=== PATIENT | male | born 1955 | race Caucasian/White ===

== ENCOUNTER → 2016-12-20 | Outpatient (CLI) | payer BC ==
[~2016-12-20] MED LIST: OPTIRAY 320 IV PRN
--- NOTE | 2016-12-20 07:30 | DIAGNOSTIC IMAGING REPORT ---
CT OF THE CHEST WITH IV CONTRAST CLINICAL HISTORY: Lung carcinoma COMPARISON STUDY: January 17, 2016 TECHNIQUE: Following the IV administration of 92 mL of Optiray-320, CT of the thorax was performed from the thoracic inlet to the lung bases. Images are reviewed in the axial, sagittal, and coronal planes. IV contrast was administered without complication. CT DOSE: 652.00 mGy.cm FINDINGS: Thyroid: Imaged portions of the thyroid gland are normal in appearance. Thoracic aorta: The thoracic aorta is normal in course and caliber, noting standard 3-vessel arch anatomy. No aneurysm or dissection is seen. Pulmonary vasculature: The pulmonary trunk is normal in caliber. There are no central filling defects identified to suggest pulmonary embolus. Note that this examination was not protocoled for the evaluation of pulmonary emboli. HEART: There are minor coronary artery calcifications. Lungs and pleural spaces: There is a trace right pleural effusion. There are postsurgical changes of a right lower lobectomy. There is no focal pulmonary consolidation. There is stable nodular atelectasis within the lingula. There is mild emphysema. Mediastinum: Mediastinal lymph nodes remain the upper limits of normal in size. Myra: There is no pathologic hilar adenopathy. Axilla: There is no pathologic axillary lymphadenopathy. Upper abdomen: There is hepatic steatosis. Skeletal structures: There is ankylosis of the dorsal spine. IMPRESSION: 1. Postoperative findings consistent with a right lower lobectomy. 2. Hepatic steatosis. 3. No evidence of recurrent malignancy within the chest Electronically signed by: Ian Lwory M.D. 12/20/2016 7:29 AM Dictated Date/Time: 12/20/2016 7:25 AM
== END | disposition home or self-care (01) ==
LOC: C.CTS 06:16
PROVIDERS: ATTEND Internal Medicine Pulmonary Disease
DX: D38.1 Neoplasm of uncertain behavior of trachea, bronchus and lung (principal); R06.02 Shortness of breath; G47.30 Sleep apnea, unspecified; K76.0 Fatty (change of) liver, not elsewhere classified; Z90.2 Acquired absence of lung [part of]

== ENCOUNTER → 2017-06-28 | Outpatient (CLI) | payer BC ==
--- NOTE | 2017-06-28 10:52 | DIAGNOSTIC IMAGING REPORT ---
TWO VIEW CHEST CLINICAL HISTORY: Asthma. Dyspnea.. FINDINGS: PA and lateral chest radiographs are compared to study dated 07/20/2016 and correlated with chest CT dated 12/20/2016. The PA view is degraded by patient rotation. The heart is top normal for projection. Mediastinal contour is within normal limits. Emphysema and chronic interstitial thickening are similar to previous. There is volume loss consistent with previous resection identified in the right lung. Scarring is seen in the right upper lung. There is pleural fluid at the right lung base. The left lung appears clear. There is no pneumothorax. The skeletal structures are osteopenic. 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 IMPRESSION: 1. Emphysema and postoperative change from right-sided pulmonary resection are similar to previous. 2. Pleural fluid is again seen in the right lung base and likely on a postoperative basis. 3. There is no airspace consolidation typical for pneumonia. Electronically signed by: Justino Stokes M.D. 06/28/2017 10:51 AM Dictated Date/Time: 06/28/2017 10:48 AM
== END | disposition home or self-care (01) ==
LOC: C.RAD1850 10:24
PROVIDERS: ATTEND Internal Medicine Pulmonary Disease
DX: D38.1 Neoplasm of uncertain behavior of trachea, bronchus and lung (principal); R06.02 Shortness of breath; J45.909 Unspecified asthma, uncomplicated; G47.30 Sleep apnea, unspecified; J43.9 Emphysema, unspecified

== ENCOUNTER → 2017-12-20 | Outpatient (CLI) | payer BC ==
--- NOTE | 2017-12-20 08:38 | DIAGNOSTIC IMAGING REPORT ---
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 Images are reviewed in the axial, sagittal, and coronal planes. IV contrast was administered without complication. A dose lowering technique was utilized adhering to the principles of ALARA. CT DOSE: 810.23 mGy.cm FINDINGS: Thyroid: Imaged portions of the thyroid gland are normal in appearance. Thoracic aorta: The thoracic aorta is normal in course and caliber, noting standard 3-vessel arch anatomy. No aneurysm or dissection is seen. Pulmonary vasculature: The pulmonary trunk is normal in caliber. There are no central filling defects identified to suggest pulmonary embolus. Note that this examination was not protocoled for the evaluation of pulmonary emboli. HEART: The heart is normal in size and configuration, without pericardial effusion. Lungs and pleural spaces: There are postsurgical changes of a right lower lobectomy. There is mild to moderate emphysema. There is no focal pulmonary consolidation. There are no suspicious pulmonary masses. There is a stable trace right pleural effusion there is a stable 3 mm left lower lobe pulmonary nodule abutting the diaphragmatic surface. Mediastinum: Mediastinal lymph nodes remain at the upper limits of normal in size Myra: There is no evidence of pathologic hilar adenopathy Axilla: There is no nodes of pathologic axillary lymphadenopathy Upper abdomen: There is hepatic steatosis Skeletal structures: There are no lytic or blastic osseous lesions. There is ankylosis of the spine. IMPRESSION: 1. Postoperative findings of a right lower lobectomy 2. Hepatic steatosis 3. No evidence of recurrent malignancy within the chest Electronically signed by: Ian Lowry M.D. 12/20/2017 7:11 AM Dictated Date/Time: 12/20/2017 7:04 AM
== END | disposition home or self-care (01) ==
LOC: C.CTS 06:43
PROVIDERS: ATTEND Internal Medicine Pulmonary Disease
DX: J45.909 Unspecified asthma, uncomplicated (principal); E78.5 Hyperlipidemia, unspecified; D38.1 Neoplasm of uncertain behavior of trachea, bronchus and lung; G47.30 Sleep apnea, unspecified; R06.02 Shortness of breath; Z90.2 Acquired absence of lung [part of]; K76.0 Fatty (change of) liver, not elsewhere classified